=== PATIENT | male | born 1960 | race Caucasian/White ===

== ENCOUNTER 2017-11-24 09:40 | Emergency (ER) | payer OTHER ==
[~2017-11-24] VITALS: Ht 177.8 cm; Wt 90.0 kg
[2017-11-24 09:41] VITALS: BP 174/82; PULSE 78; RESP 16; TEMP 98.4; O2SAT 99
[2017-11-24] MEDS ORDERED: LISI10TA3 PO (09:52)
[2017-11-24] MEDS ORDERED: SIMV20TA PO (09:52)
[2017-11-24] MEDS ORDERED: SODIUM CHLORIDE 0.9% FLUSH 10 ML FLUSH IV FLUSH PRN (10:00)
[2017-11-24] MEDS ORDERED: PANTOPRAZOLE INJ 80 MG in SODIUM CHLORIDE 0.9% INJ 35 ML IV ONE (10:00)
[2017-11-24] MEDS ORDERED: PANTOPRAZOLE INJ 80 MG in SODIUM CHLORIDE 0.9% INJ 100 ML IV SCH (10:00)
[2017-11-24 10:39] LABS: AUTOMATED NEUTROPHIL # 3.6 TH/MM3 (1.8-7.7); BASOPHIL # 0.1 TH/MM3 (0-0.2); BASOPHIL % 1.2 % (0.0-2.0); EOSINOPHIL # 0.2 TH/MM3 (0-0.4); EOSINOPHIL % 2.8 % (0.0-4.0); HEMATOCRIT 43.4 % (39.0-51.0); HEMOGLOBIN 14.7 GM/DL (13.0-17.0); LYMPH % 27.6 % (9.0-44.0); LYMPHOCYTE # 1.7 TH/MM3 (1.0-4.8); MEAN CELL VOLUME 88.9 FL (80.0-100.0); MEAN CORPUSCULAR HEMOGLOBIN 30.1 PG (27.0-34.0); MEAN CORPUSCULAR HGB CONC 33.8 % (32.0-36.0); MEAN PLATELET VOLUME 7.7 FL (7.0-11.0); MONO % 9.5 % (0.0-8.0); MONOCYTE # 0.6 TH/MM3 (0-0.9); NEUT % 58.9 % (16.0-70.0); PLATELET COUNT 291 TH/MM3 (150-450); RED BLOOD COUNT 4.88 MIL/MM3 (4.50-5.90); RED CELL DISTRIBUTION WIDTH 13.5 % (11.6-17.2); WHITE BLOOD COUNT 6.1 TH/MM3 (4.0-11.0)
[2017-11-24 10:52] LABS: PROTHROMBIN TIME - PATIENT 9.8 SEC (9.8-11.6)
[2017-11-24 10:56] LABS: ALT (GPT) 35 U/L (12-78); AST (GOT) 23 U/L (15-37); BICARBONATE 26.8 MEQ/L (21.0-32.0); BLOOD UREA NITROGEN 11 MG/DL (7-18); CALCIUM 8.9 MG/DL (8.5-10.1); CHLORIDE 104 MEQ/L (98-107); CREATININE 0.81 MG/DL (0.60-1.30); GLOMERULAR FILTRATION RATE 98 ML/MIN (>89); GLUCOSE,RANDOM 92 MG/DL (74-106); SODIUM (NA) 138 MEQ/L (136-145)
[2017-11-24 10:58] LABS: ALKALINE PHOSPHATASE 50 U/L (45-117); TOTAL BILIRUBIN ADULT 0.5 MG/DL (0.2-1.0); TOTAL PROTEIN 7.8 GM/DL (6.4-8.2)
[2017-11-24] MEDS ORDERED: IOHEXOL 350 MG/ML 10 ML VIAL (for RAD DIAG) IVCONTRAST ONE (11:23)
[2017-11-24 11:30] VITALS: BP 159/74; PULSE 67; RESP 16; O2SAT 98
--- NOTE | 2017-11-24 11:50 | RADRPT ---
EXAM DATE/TIME: 11/24/2017 11:19 [place] COMPARISON: No previous studies available for comparison. INDICATIONS : Lower abdominal pain, blood in stool IV CONTRAST: 88 cc Omnipaque 350 (iohexol) IV ORAL CONTRAST: No oral contrast ingested. RADIATION DOSE: 13.56 CTDIvol (mGy) MEDICAL HISTORY : Hypertension. SURGICAL HISTORY : None. ENCOUNTER: Initial ACUITY: 4 - 6 days PAIN SCALE: 2/10 LOCATION: Bilateral lower quadrant TECHNIQUE: Volumetric scanning of the abdomen and pelvis was performed. Using automated exposure control and ad justment of the mA and/or kV according to patient size, radiation dose was kept as low as reasonably achievable to obtain optimal diagnostic quality images. DICOM format image data is available electro nically for review and comparison. FINDINGS: The limited portion of lung bases visualized is clear. Note is made of a moderate size hiatal hernia. The appearance of the liver, spleen, pancreas, adrenal glands and kidneys is within normal limits. Th ere is no free air. No free fluid is identified. No retroperitoneal lymphadenopathy is evident. The a bdominal aorta is normal in caliber. The visualized loops of small and large bowel in the upper abdomen are unremarkable. There is no free fluid within the pelvis. No iliac or inguinal adenopathy is seen. The loops of bowel within the pelvis are unremarkable. The prostate is enlarged measuring 5.7 x 4.7 cm. The visualized bony structures demonstrate degenerative changes but are otherwise intact. CONCLUSION: 1. Enlargement of the prostate. 2. CT imaging of the abdomen and pelvis is otherwise within normal limits for age. Chino Phillips MD on November 24, 2017 at 11:45 Board Certified Radiologist. This report was verified electronically.
[2017-11-24 14:17] VITALS: BP 139/69; PULSE 82; RESP 18; O2SAT 96
[2017-11-24 14:27] LABS: AUTOMATED NEUTROPHIL # 3.8 TH/MM3 (1.8-7.7); BASOPHIL # 0.1 TH/MM3 (0-0.2); BASOPHIL % 1.2 % (0.0-2.0); EOSINOPHIL # 0.1 TH/MM3 (0-0.4); EOSINOPHIL % 1.6 % (0.0-4.0); LYMPH % 27.9 % (9.0-44.0); LYMPHOCYTE # 1.8 TH/MM3 (1.0-4.8); MEAN CELL VOLUME 88.4 FL (80.0-100.0); MEAN CORPUSCULAR HEMOGLOBIN 30.3 PG (27.0-34.0); MEAN CORPUSCULAR HGB CONC 34.2 % (32.0-36.0); MEAN PLATELET VOLUME 7.6 FL (7.0-11.0); MONO % 8.5 % (0.0-8.0); MONOCYTE # 0.5 TH/MM3 (0-0.9); NEUT % 60.8 % (16.0-70.0); PLATELET COUNT 277 TH/MM3 (150-450); RED BLOOD COUNT 4.64 MIL/MM3 (4.50-5.90); RED CELL DISTRIBUTION WIDTH 13.7 % (11.6-17.2); WHITE BLOOD COUNT 6.3 TH/MM3 (4.0-11.0)
[2017-11-24] MEDS ORDERED: COLA100C5 PO (14:55)
--- NOTE | 2017-11-24 14:55 | PD ---
HPI Chief Complaint: GI Complaint Time Seen by Provider: 09:53 Travel History International Travel<30 days: No Contact w/Intl Traveler<30days: No History of Present Illness HPI Patient is a 57 year old male who comes in due to bleeding with bowel movements. He says that when he has a bowel movement he notices blood in the toilet. He says this has been going on for the past 5 days. He denies any pain. He says he has not noticed any constipation. He has a colonoscopy 3 years ago and he says it was fine. He denies seeing blood any other time other than during a bowel movement. He denies any dizziness or palpitations. He says this has never happened before. Nothing seems to improve or worsen the symptoms. Severity is mild to moderate. PFSH Past Medical History High Cholesterol: Yes Hypertension: Yes Sleep Apnea: Yes Past Surgical History Abdominal Surgery: Yes (POLYPS REMOVAL) Social History Alcohol Use: Yes (OCC) Tobacco Use: No Substance Use: No Allergies-Medications (Allergen,Severity, Reaction): Coded Allergies: No Known Allergies (Unverified , 11/24/17) Reported Meds & Prescriptions Reported Meds & Active Scripts Active Reported Simvastatin 20 Mg Tab 20 Mg PO DAILY Lisinopril 10 Mg Tab 10 Mg PO DAILY Review of Systems Except as stated in HPI: all other systems reviewed are Neg General / Constitutional: No: Fever, Chills Eyes: No: Blurred Vision HENT: No: Headaches, Lightheadedness Cardiovascular: No: Chest Pain or Discomfort, Palpitations Respiratory: No: Shortness of Breath Gastrointestinal: Positive: Hematochezia, No: Nausea, Vomiting Genitourinary: No: Dysuria Musculoskeletal: No: Myalgias, Weakness Skin: No Rash, No Itching, No Change in Pigmentation Neurologic: No: Weakness Physical Exam Narrative GENERAL: Awake and alert, in no acute distress. SKIN: Focused skin assessment warm/dry. HEAD: Atraumatic. Normocephalic. EYES: Pupils equal and round. No scleral icterus. Normal conjunctivae ENT: Mucous membranes pink and moist. NECK: Trachea midline. No JVD. CARDIOVASCULAR: Regular rate and rhythm. No murmur appreciated. RESPIRATORY: No accessory muscle use. Clear to auscultation. Breath sounds equal bilaterally. GASTROINTESTINAL: Abdomen soft, non-tender, nondistended. RECTAL: Exam performed in the presence of a nurse. There are a few external hemorrhoids present. No masses. Stool is brown, positive for occult blood. MUSCULOSKELETAL: No obvious deformities. No clubbing. No cyanosis. No edema. NEUROLOGICAL: Awake and alert. No obvious cranial nerve deficits. Motor grossly within normal limits. Normal speech. PSYCHIATRIC: Appropriate mood and affect; insight and judgment normal. Data Data Last Documented VS Vital Signs Date Time Temp Pulse Resp B/P (MAP) Pulse Ox O2 Delivery O2 Flow Rate FiO2 11/24/17 14:17 82 18 139/69 (92) 96 Room Air 11/24/17 09:41 98.4 Orders Orders Complete Blood Count With Diff (11/24/17 09:58) Comprehensive Metabolic Panel (11/24/17 09:58) Prothrombin Time / Inr (Pt) (11/24/17 09:58) Act Partial Throm Time (Ptt) (11/24/17 09:58) Ct Abd/Pel W Iv Contrast(Rout) (11/24/17 09:58) Iv Access Insert/Monitor (11/24/17 09:58) Ecg Monitoring (11/24/17 09:58) Oximetry (11/24/17 09:58) Sodium Chloride 0.9% Flush (Ns Flush) (11/24/17 10:00) Type And Screen (11/24/17 09:58) Pantoprazole Inj (Protonix Inj) (11/24/17 10:00) Pantoprazole Inj (Protonix Inj) (11/24/17 10:00) Iohexol 350 Inj (Omnipaque 350 Inj) (11/24/17 11:23) Complete Blood Count With Diff (11/24/17 13:43) Labs Laboratory Tests Test 11/24/17 10:20 11/24/17 14:00 White Blood Count 6.1 TH/MM3 6.3 TH/MM3 Red Blood Count 4.88 MIL/MM3 4.64 MIL/MM3 Hemoglobin 14.7 GM/DL 14.0 GM/DL Hematocrit 43.4 % 41.0 % Mean Corpuscular Volume 88.9 FL 88.4 FL Mean Corpuscular Hemoglobin 30.1 PG 30.3 PG Mean Corpuscular Hemoglobin Concent 33.8 % 34.2 % Red Cell Distribution Width 13.5 % 13.7 % Platelet Count 291 TH/MM3 277 TH/MM3 Mean Platelet Volume 7.7 FL 7.6 FL Neutrophils (%) (Auto) 58.9 % 60.8 % Lymphocytes (%) (Auto) 27.6 % 27.9 % Monocytes (%) (Auto) 9.5 % 8.5 % Eosinophils (%) (Auto) 2.8 % 1.6 % Basophils (%) (Auto) 1.2 % 1.2 % Neutrophils # (Auto) 3.6 TH/MM3 3.8 TH/MM3 Lymphocytes # (Auto) 1.7 TH/MM3 1.8 TH/MM3 Monocytes # (Auto) 0.6 TH/MM3 0.5 TH/MM3 Eosinophils # (Auto) 0.2 TH/MM3 0.1 TH/MM3 Basophils # (Auto) 0.1 TH/MM3 0.1 TH/MM3 CBC Comment DIFF FINAL DIFF FINAL Differential Comment Prothrombin Time 9.8 SEC Prothromb Time International Ratio 1.0 RATIO Activated Partial Thromboplast Time 27.2 SEC Blood Urea Nitrogen 11 MG/DL Creatinine 0.81 MG/DL Random Glucose 92 MG/DL Total Protein 7.8 GM/DL Albumin 4.0 GM/DL Calcium Level 8.9 MG/DL Alkaline Phosphatase 50 U/L Aspartate Amino Transf (AST/SGOT) 23 U/L Alanine Aminotransferase (ALT/SGPT) 35 U/L Total Bilirubin 0.5 MG/DL Sodium Level 138 MEQ/L Potassium Level 3.9 MEQ/L Chloride Level 104 MEQ/L Carbon Dioxide Level 26.8 MEQ/L Anion Gap 7 MEQ/L Estimat Glomerular Filtration Rate 98 ML/MIN MDM Medical Decision Making Medical Screen Exam Complete: Yes Emergency Medical Condition: Yes Differential Diagnosis GI bleed versus hemorrhoids versus diverticulosis versus colitis Narrative Course Patient is a 57-year-old male who comes in complaining of blood in his stool. Exam shows brown stool, positive for blood. IV established, labs sent. Labs show a hemoglobin of 14.7. I believe his bleeding is secondary to hemorrhoids. Patient was given a dose of Protonix. CT abdomen and pelvis performed shows no acute abnormalities. Last 24 hours Impressions Abdomen/Pelvis CT 11/24/17 0958 Signed Impressions: Service Date/Time: Friday, November 24, 2017 11:19 - CONCLUSION: 1. Enlargement of the prostate. 2. CT imaging of the abdomen and pelvis is otherwise within normal limits for age. Chino Phillips MD Repeat hemoglobin was performed without significant drop in numbers, to 14. Patient advised to follow-up with gastroenterology, advised he needs a colonoscopy performed. Advised return anytime for any worsening bleeding or any worsening symptoms. Patient is comfortable with this plan at this time. Diagnosis Primary Impression: Rectal bleed Additional Impression: Bleeding hemorrhoid Referrals: Yaima Muñoz MD call for appointment Patient Instructions: Gastrointestinal Bleeding (ED), General Instructions Additional Instructions: Follow up with gastroenterology as soon as possible. Return at any time for any worsening symptoms. Take stool softeners unless you are having diarrhea. Scripts Docusate Sodium (Colace) 100 Mg Capsule 100 MG PO HS for Prevent Constipation, #30 CAP 0 Refills Prov: Lara Taylor MD 11/24/17 Disposition: 01 DISCHARGE HOME Condition: Stable Lara Taylor MD Nov 24, 2017 14:55
== END 2017-11-24 15:10 | disposition home or self-care (01) ==
LOC: NEPE 09:40
DX: K64.8 Other hemorrhoids (principal); K92.1 Melena; E78.00 Pure hypercholesterolemia, unspecified; I10 Essential (primary) hypertension
CPT/HCPCS: 74177; 80053; 85025; 85610; 85730; 86850; 86900; 86901; 96365; 96368; 99284; C9113; Q9967